=== PATIENT | female | born 1940 | race Caucasian/White ===

== ENCOUNTER 2022-09-25 15:30 | Emergency (ER) | payer MEDICARE ==
[~2022-09-25] VITALS: Ht 172.7 cm; Wt 84.0 kg
[2022-09-25 17:29] VITALS: BP 173/68
--- NOTE | 2022-09-25 18:45 | NUR ---
Patient evaluated by provider in [facility]. Patient back in lobby. Corey for exam room in main ED.
[2022-09-25 18:51] LABS: BASOPHILS # (AUTO) 0.1 X10'3 (0-0.2); BASOPHILS % (AUTO) 0.8 % (0-1); EOSINOPHILS # (AUTO) 0.1 X10'3 (0-0.9); EOSINOPHILS % (AUTO) 0.6 % (0-6); HEMATOCRIT 35.6 % (35.0-45.0); HEMOGLOBIN 11.4 g/dl (12.0-16.0); LYMPHOCYTES # (AUTO) 2.6 X10'3 (1.1-4.8); LYMPHOCYTES % (AUTO) 27.1 % (21-51); MEAN CORPUSCULAR HEMOGLOBIN 24.2 PG (27.0-31.0); MEAN CORPUSCULAR HGB CONC 31.9 g/dL (33.0-36.5); MEAN CORPUSCULAR VOLUME 75.9 FL (78-98); MEAN PLATELET VOLUME 8.2 FL (7.4-10.4); MONOCYTES # (AUTO) 0.7 X10'3 (0-0.9); MONOCYTES % (AUTO) 7.4 % (2-12); NEUTROPHILS # (AUTO) 6.2 X10'3 (1.8-7.7); NEUTROPHILS % (AUTO) 64.1 % (42-75); PLATELET COUNT 296 X10'3 (140-440); RED CELL DISTRIBUTION WIDTH 17.2 % (11.5-14.5); WHITE BLOOD COUNT 9.6 X10'3 (4.5-11.0)
[2022-09-25 19:01] LABS: D-DIMER 0.94 MG/L FEU (0-0.50)
[2022-09-25 19:08] LABS: ALANINE AMINOTRANSFERASE 15 U/L (12-78); ALBUMIN 3.7 G/DL (3.4-5.0); ALBUMIN/GLOBULIN RATIO 0.9 (1.1-1.5); ALKALINE PHOSPHATASE 109 IU/L (46-116); ANION GAP 8 (8-16); ASPARTATE AMINO TRANSFERASE 17 U/L (10-37); BILIRUBIN,TOTAL 0.6 MG/DL (0.1-1.0); BLOOD UREA NITROGEN 20 MG/DL (7-18); BUN/CREATININE RATIO 17.9 (6.6-38.0); CALCIUM 9.9 MG/DL (8.5-10.1); CHLORIDE 101 MMOL/L (99-107); CREATININE 1.12 MG/DL (0.40-0.90); GLUCOSE 106 MG/DL (70-104); POTASSIUM 4.3 MMOL/L (3.5-5.1); SODIUM 136 MMOL/L (135-145); TOTAL CARBON DIOXIDE 27.2 MMOL/L (24-32); TOTAL PROTEIN 7.7 G/DL (6.4-8.2); eGFR 47 ML/MIN
[2022-09-25] MEDS ORDERED: ALBU18HF2 INH (19:41)
== END 2022-09-25 19:57 | disposition home or self-care (01) ==
LOC: ER 15:31
DX: J40 Bronchitis, not specified as acute or chronic (principal); R07.89 Other chest pain; I10 Essential (primary) hypertension; Z79.899 Other long term (current) drug therapy; Z88.8 Allergy status to other drugs, medicaments and biological substances
CPT/HCPCS: 36415; 71046; 80053; 83880; 84145; 84484; 85025; 85379; 93005; 99285

== ENCOUNTER 2025-07-08 16:11 | Emergency (ER) | payer MEDICARE ==
[~2025-07-08] VITALS: Ht 172.7 cm; Wt 89.1 kg
[~2025-07-08 16:11] MED LIST: ALBU18HF2 INH
--- NOTE | 2025-07-08 17:02 | RADIOLOGY REPORT ---
Indication: Finger Pain Technique: DI FINGER(S)FINGERS Comparison: None FINDINGS/IMPRESSION: No radiographic evidence for acute fracture or dislocation. 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 Osteopenia.
--- NOTE | 2025-07-08 18:10 | Physician Documentation ---
History of Present Illness ~ Chief Complaint: Finger pain Stated Complaint: FINGER LAC Time Seen by MD: 16:46 HPI Patient is a pleasant 85-year-old female that presents to the emergency department for evaluation of a index finger injury after having her finger pinched in the grocery cart while the grocery store today. Patient presents with a superficial laceration/tear to the pad of the index finger. Bleeding is currently controlled. Patient does not take blood thinners. Patient denies any other symptoms at this time. Tetanus within 5 years: No Medication Reconciliation Allergies: Coded Allergies: phenobarbital (Unverified Adverse Reaction, Unknown, PARADOXICAL REACTION, 07/08/25) Scheduled Albuterol Sulfate (Ventolin Hfa), 2 PUFFS INH Q4HPRN Past Medical History Past Medical History: Hypertension Past Surgical History: noncontributory Alcohol Use: None Drug Use: none Review of Systems ROS As stated above in the HPI, otherwise all systems are reviewed and negative. Physical Exam Vital Signs: Temperature: 97.8, Source: Temporal, Heart Rate: 80, Respiratory Rate: 18, BP: 187/97, Pulse Oximetry: 96, Weight: 89.100 Oxygen Flow Rate: 0 Physical Exam VITALS: Reviewed and as above. MUSCULOSKELETAL No deformities, no edema SKIN: Warm and dry, no rash, superficial laceration/tear noted to the pad of the index finger. Bleeding controlled. NEURO: Oriented x4, No motor or sensory deficit PSYCH: Normal mood and affect, no agitation Progress Results/Orders Results/Orders Completed Orders - NEDRA HINES [employer] Tetanus Immune Globulin/Pf (Hypertet S-D (07/08/25 17:55) Vital Signs 07/08/25 16:21 Temp 97.8 Pulse 80 Resp 18 B/P (MAP) 187/97 Pulse Ox 96 O2 Flow Rate 0 Medical Decision Making Additional information obtaine: other Findings Patient: 85-year-old female Presenting Complaint: Superficial laceration to the pad of the right index finger after being pinched in a grocery cart. History: No anticoagulant use. Denies systemic symptoms (fever, chills, numbness, weakness). No history of diabetes, immunosuppression, or other infection-potentiating comorbidities. Physical Exam: Superficial laceration, bleeding controlled, no tendon, nerve, or bone exposure. No evidence of infection or neurovascular compromise. Imaging: Hand/finger X-rays negative for fracture, dislocation, or foreign body. ED Management: Wound irrigated and cleaned per standard protocol. Hemostasis achieved. No repair required; wound edges well-approximated, no tension, and <2 cm in length. Moist, occlusive dressing applied to optimize healing. No antibiotics prescribed, as the wound is low risk for infection. Tetanus status reviewed; no indication for prophylaxis per CDC guidelines. Clinical Decision-Making: Conservative management appropriate for simple, superficial hand lacerations without involvement of deeper structures or complicating factors. No indication for surgical intervention, tissue adhesive, or suture. No radiographic evidence of fracture or retained foreign body. No need for antibiotics or further ED-based therapy. Discharge Plan: Patient instructed on wound care: keep dressing clean and dry for 24-48 hours, then may gently wash without scrubbing. Monitor for signs of infection (erythema, warmth, swelling, drainage). Elevate hand to reduce swelling. Follow up with primary care provider for any concerns or if symptoms worsen. Return to ED for new or worsening symptoms (increased pain, redness, swelling, fever, purulent drainage, loss of function). Discharge instructions provided in large font and reviewed for comprehension per geriatric ED guidelines. The patient received a tetanus immunization while here in the emergency department. Disposition: Stable for discharge. No new medications or changes to chronic medications. No mobility or safety concerns identified. Outpatient follow-up arranged as needed. General Diff Dx:Considerations: Include: Abrasion, Contusion, Fracture, He matoma, Laceration, Malunion, Neurovascular injury, Open fracture, Sprain, Ulcer, Other Shoulder Diff Dx:Consideration: Include: AC separation, Adhesive capsulitis, Arthritis, Bicipital tendonitis, Calcific tendonitis, Cervical disc disease, Contusion, Dislocation, Fracture-humerus, Fracture-scapula, Fracture-clavicle, GB disease, Hematoma, Impingement syndrome, Myocardial infarction, Neurovascular injury, Open fracture-humerus, Open fracture-scapula, Open fracture-clavicle, Rotator cuff injury, SC dislocatoin, Sprain, Subacromial bursitis, Other Elbow Diff Dx:Considerations: Include: Abrasion, Arthritis, Contustion, DJD, Fracture-humerus, Fracture-radial head, Fracture-radius, Fracture-ulna, Gout, Hematoma, Laceration, Neurovascular injury, Olecranon bursitis, Open fracture, Osteomyelitis, Radial head subluxation, Rheumatoid arthritis, Septic, Sprain, Ulcer, Other Wrist Diff Dx:Considerations: Include: Abrasion, Arthritis, DJD, Gout, Rheumatoid, Septic, Carpal tunnel snydrome, Contusion, Dislocation, Fracture- carpal, Fracture-radius, Fracture-ulna, Ganglion, Laceration, Neurovascular injury, Open fracture, Strain, Other Hand Diff Dx:Considerations: Include: Abrasion, Arthritis, Contusion, DJD, Felon, Fracture-carpal, Fracture-metacarpal, Fracture-phalynx, Fracture-radius, Fracture-ulna, Gout, Hematoma, Herpetic joey, Laceration, Neurovascular injury, Open fracture, Paronychia, Rheumatoid arthritis, Septic, Sprain, Subung ual hematoma, Tenosynovitis, Volar plate injury, Cellulitis, Malunion, Other Finger Diff Dx:Considerations: Include: Abrasion, Cellulitis, Contusion, Dislocation, Fracture, Hematoma, Laceration, Neurovascular injury, Open fracture, Subungual hematoma, Other Departure Disposition: 01 HOME / SELF CARE / HOMELESS Impression: Primary Impression: Injury of index finger Condition: Stable Discharge Instructions: Laceration Care, Adult Additional Instructions: Your Diagnosis: You have a cut (laceration) on the pad of your right index finger from being pinched in a grocery cart. What We Did Today: Took X-rays of your finger no broken bones were found Cleaned your wound thoroughly Applied a protective bandage Your wound does not need stitches Taking Care of Your Wound at Home Keep It Clean and Covered: Keep the bandage on for 24 to 48 hours (1 to 2 days). After 2 days, you may gently wash the wound with soap and water, but do not scrub or soak it. Pat the area dry with a clean towel. You may apply a thin layer of antibiotic ointment (like Neosporin) to help prevent infection and keep the wound moist . Reduce Swelling: Keep your hand elevated (raised above your heart) as much as possible Rest your hand on pillows when sitting or lying down Watch for Signs of Infection: Call your doctor or return to the emergency department if you notice any of these warning signs: Increased redness spreading from the wound Warmth around the wound Swelling that gets worse Pus or drainage from the wound Fever (temperature over 100.4F) Red streaks going up your finger or hand Pain that gets worse instead of better What You Don't Need: You do not need antibiotics simple finger cuts like yours usually heal well without antibiotics The wound should heal on its own in about 4 to 5 weeks Follow-Up Care Follow up with your primary care doctor if you have any concerns about healing You do not need to remove any stitches because your wound did not require repair When to Return to the Emergency Department Come back to the emergency department right away if you experience: Signs of infection (listed above) Increased pain that does not improve with [id number] pain medicine Numbness or tingling in your finger Difficulty moving your finger Any other symptoms that worry you Important Reminders Most finger wounds like yours heal very well without complications Keeping the wound moist with ointment and covered helps it heal faster It is normal for the wound to be tender for several days You may resume normal hand washing after 48 hours Patient received tetanus immunization while here in the emergency department. Questions? If you have any questions or concerns, please contact your primary care doctor. Referrals: NO PRIMARY CARE PROVIDER (PCP) Education Educated: Patient Educated regarding: diagnosis, treatment, need for follow up Signature Scribe Signature: A Attestation: Scribed for Nedra Hines by BEAU Dawson . 07/08/25 18:11 NEDRA HINES Jul 08, 2025 18:10
[2025-07-08 18:12] VITALS: BP 136/78; PULSE 87; RESP 19; TEMP 97.8; O2SAT 99
== END 2025-07-08 18:14 | disposition home or self-care (01) ==
LOC: ER 16:12
DX: S61.210A Laceration without foreign body of right index finger without damage to nail, initial encounter (principal); I10 Essential (primary) hypertension; Z88.8 Allergy status to other drugs, medicaments and biological substances; Z79.899 Other long term (current) drug therapy; X58.XXXA Exposure to other specified factors, initial encounter; Y93.89 Activity, other specified; Y92.009 Unspecified place in unspecified non-institutional (private) residence as the place of occurrence of the external cause; Y99.8 Other external cause status
CPT/HCPCS: 73140; 99283; A6258; A6402; G0008; J1670; 90471; A6449